=== PATIENT | male | born 1975 | race Caucasian/White ===

== ENCOUNTER 2018-05-03 19:56 | Emergency (ER) | payer MEDICAID ==
[~2018-05-03] VITALS: Ht 170.2 cm; Wt 104.8 kg
[2018-05-03 21:56] LABS: microscopic required? NO
[2018-05-03 22:12] LABS: BASOPHIL % 0.4 % (0-2); PLATELET COUNT 235 x10^3mcL (130-400); RED CELL DISTRIBUTION WIDTH 13.7 % (11.5-14.5)
[2018-05-03 22:20] LABS: UA SPECIFIC GRAVITY >=1.030 (1.005-1.035); urine erythrocyte NEGATIVE (NEGATIVE)
[2018-05-03 22:26] LABS: CALCIUM 8.4 mg/dL (8.5-10.1); CARBON DIOXIDE 24.4 mmol/L (21-32); CHLORIDE SERUM 103 mmol/L (98-107); CREATININE SERUM 1.1 mg/dL (0.7-1.3); GFR1 > 60 mL/min; GLUCOSE SERUM 103 mg/dL (74-106); POTASSIUM SERUM 3.8 mmol/L (3.5-5.1); SODIUM SERUM 138 mmol/L (136-145)
[2018-05-03 22:31] LABS: ALKALINE PHOSPHATASE 71 U/L (46-116); ALT/SGPT 76 U/L (16-63); AST/SGOT 44 U/L (15-37); BILIRUBIN TOTAL 0.49 mg/dL (0.20-1.00); LIPASE 177 IU/L (73-393); TOTAL PROTEIN, SERUM 7.9 g/dL (6.4-8.2)
[2018-05-03 23:11] VITALS: BP 119/75
== END 2018-05-03 23:11 | disposition home or self-care (01) ==
LOC: ED 19:56
PROVIDERS: Emergency Medicine
DX: M54.5 Low back pain (principal); R07.81 Pleurodynia; W01.0XXA Fall on same level from slipping, tripping and stumbling without subsequent striking against object, initial encounter; Y93.89 Activity, other specified; Y92.89 Other specified places as the place of occurrence of the external cause; Y99.8 Other external cause status
CPT/HCPCS: 36415; J1885